=== PATIENT | female | born 1955 | race Caucasian/White ===

== ENCOUNTER 2021-08-18 11:26 | Outpatient (REF) | payer OTHER, SELFPAY ==
--- NOTE | ~2021-08-18 | XR_ITS ---
EXAMINATION: XR KNEE, LEFT CLINICAL INFORMATION: Pain after trauma yesterday COMPARISON: Left knee x-rays May 20, 2019 TECHNIQUE: Four views of the left knee. FINDINGS: No fracture or dislocation. No suprapatellar joint effusion. Mild narrowing of the medial joint space height. Tiny tricompartmental marginal osteophytes. XR/XR knee LT 4V IMPRESSION: Mild degenerative changes of the left knee.
== END 2021-08-18 11:27 | disposition home or self-care (01) ==
LOC: HO.HMGCX 11:26
PROVIDERS: PCP Hospitalist; Visit Provider Internal Medicine
DX: S83.92XA Sprain of unspecified site of left knee, initial encounter (principal); X58.XXXA Exposure to other specified factors, initial encounter; Y93.9 Activity, unspecified; Y92.9 Unspecified place or not applicable; Y99.9 Unspecified external cause status
CPT/HCPCS: 73564

== ENCOUNTER 2021-10-01 12:04 | Outpatient (REF) | payer OTHER, SELFPAY ==
[2021-10-01 13:07] LABS: COVID-19 Test Negative (Negative)
== END 2021-10-01 12:05 | disposition home or self-care (01) ==
LOC: HO.LAB 12:04
PROVIDERS: Visit Provider Internal Medicine
DX: Z20.822 Contact with and (suspected) exposure to COVID-19 (principal)
CPT/HCPCS: 36415; 87635; C9803

== ENCOUNTER 2024-08-28 18:30 | Emergency (ER) | payer MEDICARE, SELFPAY ==
--- NOTE | ~2024-08-28 | XR_ITS ---
EXAMINATION: XR HAND/WRIST, LEFT CLINICAL INFORMATION: Pain in fifth digit due to fall today COMPARISON: Left-sided wrist 07/29/2014 TECHNIQUE: PA, lateral, oblique, and scaphoid views of the left hand and wrist. FINDINGS: There is an acute spiral fracture through the mid metacarpal of the fifth digit. No other acute fractures are seen. There is a plate and screw device overlying the distal radius with old healed fracture. There is an old healed fracture of the distal ulna degenerative changes are seen at the interphalangeal joints and first CMC joint. XR/XR hand wrist LT IMPRESSION: Acute spiral fracture through the mid metacarpal of the fifth digit. Electronically signed by: Stephen Man MD 08/28/2024 07:58 PM EDT
[2024-08-28 18:32] VITALS: BP 142/62; PULSE 77; RESP 16; TEMP 37; O2SAT 97; BMI 25.4
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
[2024-08-28 18:57] VITALS: BP 137/74; PULSE 69; RESP 18; TEMP 37.2; O2SAT 97
[2024-08-28 20:08] VITALS: BP 135/72; PULSE 68; RESP 19; TEMP 37.2; O2SAT 98
== END 2024-08-28 20:13 | disposition home or self-care (01) ==
PROVIDERS: Emergency Provider Emergency Medicine; PCP Physician Assistant
DX: S62.397A Other fracture of fifth metacarpal bone, left hand, initial encounter for closed fracture (principal); W18.39XA Other fall on same level, initial encounter; M79.642 Pain in left hand; Y93.9 Activity, unspecified; Y92.828 Other wilderness area as the place of occurrence of the external cause; Y99.9 Unspecified external cause status
CPT/HCPCS: 29125; 73110; 73130; 99283; 99284

== ENCOUNTER 2024-08-31 14:07 | Outpatient (AMB) | payer MEDICARE, SELFPAY ==
[2024-08-31 14:22] VITALS: BMI 25.2
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
== END 2024-08-31 15:32 | disposition home or self-care (01) ==
LOC: HO.HOS 14:08
PROVIDERS: PCP Physician Assistant; Visit Provider Orthopaedic Surgery
DX: S62.307A Unspecified fracture of fifth metacarpal bone, left hand, initial encounter for closed fracture (principal); R20.0 Anesthesia of skin
CPT/HCPCS: 99204

== ENCOUNTER 2024-08-31 15:41 | Outpatient (REF) | payer MEDICARE, SELFPAY | END 2024-08-31 15:42 | disposition home or self-care (01) | LOC: HO.HOSX 15:41 | PROVIDERS: Visit Provider Orthopaedic Surgery | DX: M79.642 Pain in left hand (principal); R20.0 Anesthesia of skin; S62.307A Unspecified fracture of fifth metacarpal bone, left hand, initial encounter for closed fracture | CPT/HCPCS: 73130; 99202 ==

== ENCOUNTER 2024-09-02 09:31 | Day surgery (SDC) | payer MEDICARE, SELFPAY ==
--- NOTE | 2024-09-01 08:52 | HO.ANESPROP2 ---
Documented by User: Jasmyn Little NP 09/01/24 08:52 HPI - Anesthesia Eval Consult details Narrative: 69yo F for Left 5th Metacarpal ORIF vs CRPP PMFSH Active Problems Active Problems: All Active Problems Closed fracture of fifth metacarpal bone of left hand (Acute) Numbness of left hand (Acute) Knee sprain (Acute) Past Medical History Medical History (Updated 09/02/24 @ 12:01 by Lulú Chaves RN) Hypothyroid Age related osteoporosis Surgical History Surgical History (Updated 09/02/24 @ 11:43 by Lulú Chaves RN) H/O right knee surgery History of surgery History of surgery Social History Social History Patient Tobacco Use Status: Never used Tobacco Meds Allergies Allergy/AdvReac Type Severity Reaction Status Date / Time No Known Allergies Allergy Verified 08/31/24 14:28 Home Medications ?Medication ?Instructions ?Recorded ?Confirmed ?Last Taken ?Type ibandronate 150 mg tablet 150 mg PO 08/18/21 Unknown History levothyroxine 25 mcg tablet 25 mcg PO DAILY 09/02/24 09/02/24 Unknown History Assessment and Plan Assessment Anesthesia Assessment: Chart Reviewed Documented by User: Roxy Mathis MD 09/02/24 12:05 PMFSH Active Problems Active Problems: All Active Problems Closed fracture of fifth metacarpal bone of left hand (Acute) Numbness of left hand (Acute) Knee sprain (Acute) Hypothyroidism Osteoporosis Past Medical History Medical History (Updated 09/02/24 @ 12:01 by Lulú Chaves RN) Hypothyroid Age related osteoporosis Family History Family history of problems with anesthesia: No Surgical History Surgical History (Updated 09/02/24 @ 11:43 by Lulú Chaves RN) H/O right knee surgery History of surgery History of surgery History of Problems with Anesthesia: No Social History Social History Patient Tobacco Use Status: Never used Tobacco Meds Allergies Allergy/AdvReac Type Severity Reaction Status Date / Time No Known Allergies Allergy Verified 08/31/24 14:28 Home Medications ?Medication ?Instructions ?Recorded ?Confirmed ?Last Taken ?Type ibandronate 150 mg tablet 150 mg PO 08/18/21 Unknown History levothyroxine 25 mcg tablet 25 mcg PO DAILY 09/02/24 09/02/24 Unknown History Exam Height,Weight and Vital Signs: Height 5 ft 2 in Weight 64.524 kg Vital Signs Temp Pulse Resp BP Pulse Ox O2 Del Method 09/02/24 12:00 98.2 F 60 16 148/81 H 98 Room Air Airway Mallampati Class: I TM Dist: >3cm Neck ROM: Full Loose/Missing/Broken Teeth: No Heart: RRR Lungs: CTAB Assessment and Plan Final Anesthetic Review Family History of Problems with Anesthesia: No History of Problems with Anesthesia: No NPO: Yes ASA Class: II Final Preanesthetic Review: No Changes in Pt Med Stat, Meds/Allgs Chart Reviewed, Consent Obtained/Reviewed and Anes Risks/Benef Reviewed Patient Risk: Low Procedure Risk: Low Assessment/Block/Sedation in SS: Assess/Block/Sedation-SS Anesthetic Plan Anesthetic Plan: GA Disposition: Standard PACU
[2024-09-02 11:43] VITALS: BMI 26.0
[2024-09-02 12:00] VITALS: BP 148/81; PULSE 60; RESP 16; TEMP 36.8; O2SAT 98
[2024-09-02] MEDS: Lactated Ringers 1,000 ML 100 ML IVCONT (12:14)
--- NOTE | 2024-09-02 12:24 | P.OP_ITS ---
Operative Note Operative Note Date of Service: 09/02/24 Narrative: Operative Note Narrative: Preop diagnosis: 1. Left 5th Metacarpal shaft fracture Postop diagnosis: Same Procedure: 1. Left 5th Metacarpal shaft fracture closed reduction percutaneous pinning 2. Ulnar nerve block Surgeon: Tonia Felipe MD Steward/Stewardess Chief Cargo Vessel: Madhav LOPEZ Anesthesia: General Anesthesia Findings: Metacarpal fracture Implants: 0.054 K-wire x1 0.045 K-wire x2 Tourniquet time: None EBL: Minimal Specimen: None Drains: None Complications: None Disposition: Brought to the recovery room in stable condition Plan: Follow-up in 10-14 days for a wound check, postop radiographs and for placement in a short-arm cast or splint Anticipate K-wire removal in 4 weeks based on interval bony healing Educate the patient that full fracture healing anticipated in approximately 8-12 weeks. Indications: The patient is 69 years old with a displaced left 5th metacarpal shaft fracture . The risks and benefits of operative treatment, including but not limited to risk of damage to blood vessels, nerves, tendons, infection, recurrence, delayed or nonunion of fracture, persistent pain or numbness, incomplete resolution of preoperative symptoms, or need for further surgery were discussed with the patient and they wished to proceed with surgery. Procedure: Once consent was obtained patient was brought back to the operating suite and placed in the operating table in a supine position. . Perioperative antibiotics and general anesthesia was administered by the anesthesia team. A tourniquet was applied to the proximal aspect of the left upper extremity and the limb was prepped and draped in a standard surgical fashion. Tourniquet was not inflated during the case. The FluoroScan was used during the case to assist with our fracture reduction and placement of all implants. A closed reduction was performed on the patient's left 5th metacarpal shaft fracture. I placed a single 0.054 K-wire retrograde through the head of the left 5th metacarpal extending proximally across the fracture site to the base of the metacarpal. 2x 0.045 K-wires were placed transversely through the neck of the 5th metacarpal extending into the head and neck of the 4th metacarpal. Fracture alignment was assessed for both angular and rotational malalignment. Once satisfied with our fracture reduction and implant placement, the K-wires were bent and cut short and pin caps applied. Final fluoroscopic images were then obtained. The wounds were copiously irrigated with normal saline. An ulnar nerve block was then performed by infiltrating about the ulnar nerve at the wrist with some 1% lidocaine with epinephrine for postop pain control. A Sterile dressing and short volar splint was applied. The patient appears to have tolerated the procedure well and with no complications. All digits were well vascularized at the conclusion of the case.
--- NOTE | 2024-09-02 12:24 | MHC.SHP ---
Pre-Procedural Eval Section A - 24 Hr Update-Section A only Date of Service: 09/02/24 The patient is an INPATIENT: No Changes since office visit: No Cold of Flu in the past 2 weeks, No New Medical Problems, No Changes in Medication and No Patient answered all questions The patient has been examined within 24 hours of the surgical procedure. The History & Physical has been completed within 30 days and I have reviewed it.: Yes Section B - Complete if H&P > 30 days Chief Complaint: Unspecified fracture of fifth metacarpal bone, Allergies: Allergies Allergy/AdvReac Type Severity Reaction Status Date / Time No Known Allergies Allergy Verified 08/31/24 14:28 Plan I have reviewed the history and physical and performed a pertinent physical examination on my patient. No changes have occurred unless specified. Time Spent With Patient Time: Total time managing care of this patient today ____ minutes.
[2024-09-02 14:47] VITALS: BP 124/61; PULSE 78; RESP 14; TEMP 36.6; O2SAT 99
[2024-09-02 14:52] VITALS: BP 136/66; PULSE 73; RESP 15; O2SAT 97
[2024-09-02 14:57] VITALS: BP 127/70; PULSE 68; RESP 15; O2SAT 97
[2024-09-02 15:02] VITALS: BP 140/69; PULSE 64; RESP 15; O2SAT 96
[2024-09-02 15:17] VITALS: BP 146/74; PULSE 65; RESP 6; TEMP 37.2; O2SAT 98
== END 2024-09-02 15:36 | disposition home or self-care (01) ==
PROVIDERS: PCP Physician Assistant; Visit Provider Orthopaedic Surgery
PROC: (CPT 26615; principal; 2024-09-02 12:50)
DX: S62.307A Unspecified fracture of fifth metacarpal bone, left hand, initial encounter for closed fracture (principal); W01.0XXA Fall on same level from slipping, tripping and stumbling without subsequent striking against object, initial encounter; Y93.01 Activity, walking, marching and hiking; Y92.821 Forest as the place of occurrence of the external cause; Y99.9 Unspecified external cause status; M81.0 Age-related osteoporosis without current pathological fracture; E03.9 Hypothyroidism, unspecified; Z79.899 Other long term (current) drug therapy; Z98.890 Other specified postprocedural states
CPT/HCPCS: 26608; J0131; J0690; J2003; J2405; J2704; J2795; J3010

== ENCOUNTER → 2024-09-02 09:31 | Outpatient (BNV) | payer MEDICARE, SELFPAY | PROVIDERS: PCP Physician Assistant; Visit Provider Orthopaedic Surgery | DX: S62.326A Displaced fracture of shaft of fifth metacarpal bone, right hand, initial encounter for closed fracture (principal) | CPT/HCPCS: 26727 ==

== ENCOUNTER 2024-09-14 11:36 | Outpatient (AMB) | payer MEDICARE, SELFPAY ==
--- NOTE | 2024-09-14 11:48 | A.OFFVIS_ITS ---
Intake Visit Reasons: PO LT 5th MC CRPP 09/02/24 AR Intake Note: Mansi is a 69 year old left hand dominant female who presents today post operative s/p Left 5th Metacarpal shaft fracture CRPP w/ Dr Felipe DOS: 09/02/2024. Patient reports that she is doing well, with very mild pain. She has been taking Tylenol for her pain which is working well. Splint removed today, Xrays updated in office today. Dressing stuck to pinsite. Allergies No Known Allergies Allergy (Verified 08/31/24 14:28) HPI HPI PO LT 5th MC CRPP 09/02/24 AR: Details: Patient is a 69-year-old female who presents for postoperative evaluation status post left 5th metacarpal CRPP, DOS 09/02/2024. Today, the patient reports that she is feeling well, and does not experience any pain at the surgery site at [facility], however she does experience some discomfort in the left small finger with attempted range of motion in the office today. Patient denies any concerns with the splint, and states that she did keep it clean, dry, and intact since surgery. No other acute complaints or concerns at this time. [facility] Medical History (Updated 09/02/24 @ 12:01 by Lulú Chaves RN) Hypothyroid Age related osteoporosis Surgical History (Updated 09/02/24 @ 11:43 by Lulú Chaves RN) H/O right knee surgery History of surgery History of surgery Social History Patient Tobacco Use Status: Never used Tobacco Review of Systems Const All systems reviewed & are unremarkable except as noted in HPI and below Physical Exam Extrem Other: Patient is alert, oriented, and in no acute distress. Neuro: Normal sensation of the tips of all digits of the left hand at this time Vascular: Cap refill brisk Pain: Patient reports no tenderness to palpation about the pin sites of the left hand ROM: Patient was unable to flex and extend the ring and small fingers of the left hand fully at this time. Patient is able to flex and extend all other digits of the left hand without difficulty Skin: No evidence of infection of the pin sites General: No ecchymosis, erythema, or evidence of infection. Psych: Appears grossly normal Affect normal Attitude cooperative Office Procedures Casting/Splints 05409-Sciz/Wrist Cast Application Procedure code (CPT) selection complete Results Reviewed Results Reviewed: X-rays obtained in the office today and independently reviewed by me, Madhav Chaudhry PA-C, demonstrate well approximated fracture of the 5th metacarpal shaft with pins in place and in satisfactory clinical alignment. Assessment & Plan Assessment & Plan (1) Closed fracture of fifth metacarpal bone of left hand: Code(s): S62.307A - Unspecified fracture of fifth metacarpal bone, left hand, initial encounter for closed fracture Category: Medical Plan 1. Left 5th metacarpal fracture status post CRPP DOS 09/02/2024 Patient appears to be recovering well postoperatively Patient is educated about the typical recovery course At this time, patient was placed into a ulnar gutter cast with the ring and small fingers in the cast and in flexion Patient is educated on proper cast care and precautions Patient will follow-up in 2 weeks with cast off and repeat x-rays, sooner with any acute concerns Orders: Orders XR hand LT min 3V Today M79.642 - Pain in left hand Coding Level of Care Code Global (57819) Diagnoses Closed fracture of fifth metacarpal bone of left hand S62.307A CPT Codes Casting - CPT: 09965-Xnoe/Wrist Cast Application ([id number])
== END 2024-09-14 12:52 | disposition home or self-care (01) ==
PROVIDERS: PCP Physician Assistant
DX: S62.307D Unspecified fracture of fifth metacarpal bone, left hand, subsequent encounter for fracture with routine healing (principal); W01.0XXA Fall on same level from slipping, tripping and stumbling without subsequent striking against object, initial encounter
CPT/HCPCS: 29085; 99024

== ENCOUNTER 2024-09-14 11:36 | Outpatient (REF) | payer MEDICARE, SELFPAY ==
--- NOTE | ~2024-09-14 | XR_ITS ---
EXAMINATION: XR HAND LEFT CLINICAL INFORMATION: Pain in left hand M79.642. COMPARISON: XR Left hand 08/31/2024 TECHNIQUE: PA, lateral, and oblique views of the left hand. FINDINGS: Postoperative changes with [address] overlying the 4th and 5th carpals. Fracture of the 5th metacarpal redemonstrated with improved alignment compared with the preoperative examination. There some minimal persistent medial displacement of the distal fragment. Incidental note made of postsurgical changes in the partially visualized of distal radius unchanged. XR/XR hand LT min 3V IMPRESSION: 1. Postoperative changes. 2. Improved alignment of the 5th metacarpal fracture compared with the preoperative examination. Electronically signed by: Yifan Germain MD 11/15/2024 09:04 AM KRISTIE BRAY
== END 2024-09-14 11:37 | disposition home or self-care (01) ==
LOC: HO.HOSX 11:36
PROVIDERS: PCP Physician Assistant
DX: S62.307A Unspecified fracture of fifth metacarpal bone, left hand, initial encounter for closed fracture (principal); M79.642 Pain in left hand
CPT/HCPCS: 29085; 73130; 99212

== ENCOUNTER 2024-10-04 12:43 | Outpatient (REF) | payer MEDICARE, SELFPAY | END 2024-10-04 12:44 | disposition home or self-care (01) | LOC: HO.HOSX 12:43 | DX: M79.642 Pain in left hand (principal); S62.307A Unspecified fracture of fifth metacarpal bone, left hand, initial encounter for closed fracture | CPT/HCPCS: 73130; 99212 ==

== ENCOUNTER 2024-10-04 13:20 | Outpatient (AMB) | payer MEDICARE, SELFPAY ==
--- NOTE | 2024-10-04 13:46 | A.OFFVIS_ITS ---
Vital Signs 10/04/24 13:48 Height 5 ft 2 in Weight 140 lb BMI 25.6 Handedness Left Intake Visit Reasons: PO LT 5th MC CRPP 09/02/24 AR Intake Note: Mansi is a 69 year old left hand dominant female who presents today post operative s/p Left 5th Metacarpal shaft fracture CRPP w/ Dr Felipe DOS: 09/02/2024. Ulnar gutter cast removed and xrays updated. Allergies No Known Allergies Allergy (Verified 10/04/24 13:48) HPI HPI PO LT 5th MC CRPP 09/02/24 AR: Details: Patient is a 69-year-old female who presents for postoperative evaluation status post left 5th metacarpal CRPP, DOS 09/02/2020. Today, the patient reports that she is feeling well, and experiences no pain at baseline. The patient expresses that she is hopeful she will be able to have her pins removed today. Patient reports no numbness or tingling in the left hand. No other acute complaints or concerns at this time. [facility] Medical History (Updated 09/02/24 @ 12:01 by uLlú Chaves RN) Hypothyroid Age related osteoporosis Surgical History (Updated 09/02/24 @ 11:43 by Lulú Chaves RN) H/O right knee surgery History of surgery History of surgery Social History Patient Tobacco Use Status: Never used Tobacco Review of Systems Const All systems reviewed & are unremarkable except as noted in HPI and below Physical Exam Vital Signs: BMI result Body Mass Index 25.6 Extrem Other: Patient is alert, oriented, and in no acute distress. Neuro: Normal sensation of the tips of all digits of the left hand at this time Vascular: Cap refill brisk Pain: Patient reports no tenderness to palpation about the pin sites of the left hand ROM: Patient was unable to flex and extend the ring and small fingers of the left hand fully at this time. Patient is able to flex and extend all other digits of the left hand without difficulty Skin: No evidence of infection of the pin sites General: No ecchymosis, erythema, or evidence of infection. Psych: Appears grossly normal Affect normal Attitude cooperative Results Reviewed Results Reviewed: X-rays obtained in the office today and independently reviewed by me, Madhav Chaudhry PA-C, demonstrate well approximated fracture of the 5th metacarpal shaft with pins in place and in satisfactory clinical alignment. Assessment & Plan Assessment & Plan (1) Closed fracture of fifth metacarpal bone of left hand: Code(s): S62.307A - Unspecified fracture of fifth metacarpal bone, left hand, initial encounter for closed fracture Category: Medical Plan 1. Left 5th metacarpal fracture status post CRPP DOS 09/02/2024 Patient appears to be recovering well postoperatively Patient is educated about the typical recovery course At this time, patient was educated that we should leave the pins in for little longer due to there not being much evidence of bony healing around the pins today Patient was advised that we will only the pins in for approximately 1 more week At this time, patient was placed into a ulnar gutter cast with the ring and s mall fingers in the cast and in flexion Patient is educated on proper cast care and precautions Patient will follow-up in 1-2 weeks with cast off and repeat x-rays, sooner with any acute concerns Orders: Orders XR hand LT min 3V Today M79.642 - Pain in left hand Coding Level of Care Code Global (54742) Diagnoses Closed fracture of fifth metacarpal bone of left hand S62.307A
[2024-10-04 13:48] VITALS: BMI 25.6
== END 2024-10-04 14:46 | disposition home or self-care (01) ==
PROVIDERS: PCP Physician Assistant
DX: S62.307A Unspecified fracture of fifth metacarpal bone, left hand, initial encounter for closed fracture (principal)
CPT/HCPCS: 99024

== ENCOUNTER 2024-10-12 14:18 | Outpatient (AMB) | payer MEDICARE, SELFPAY ==
--- NOTE | 2024-10-12 14:46 | MHC.OFFVIS ---
Intake Visit Reasons: PO LT 5th MC CRPP 09/02/24 AR Intake Note: Mansi is a 69 year old left hand dominant female who presents to the office today for a PO LT 5th MC CRPP 09/02/24 AR. Pt states she is overall feeling well and denies any pain, numbness, or tingling. Allergies No Known Allergies Allergy (Verified 10/12/24 14:47) HPI HPI PO LT 5th MC CRPP 09/02/24 AR: Details: Patient is a 69 old female who presents for postoperative evaluation status post left 5th metacarpal CRPP, DOS 09/02/2024 today, the patient reports that she is feeling well, and is experiencing no discomfort in left hand at baseline. The patient does feel that her range of motion has been significantly reduced since surgery due to being in a cast for 5 weeks. Patient states no concerns for increasing pain or other signs or symptoms of infection of the pin site. Denies any numbness or tingling in the left hand. No other acute complaints or concerns at this time. [facility] Medical History (Updated 09/02/24 @ 12:01 by Lulú Chaves RN) Hypothyroid Age related osteoporosis Surgical History (Updated 09/02/24 @ 11:43 by Lulú Chaves RN) H/O right knee surgery History of surgery History of surgery Social History Patient Tobacco Use Status: Never used Tobacco Review of Systems Const All systems reviewed & are unremarkable except as noted in HPI and below Physical Exam Extrem Other: Patient is alert, oriented, and in no acute distress. Neuro: Normal sensation of the tips of all digits of the left hand at this time Vascular: Cap refill brisk Pain: Patient reports no tenderness to palpation about the pin sites of the left hand ROM: Patient was unable to flex and extend the ring and small fingers of the left hand fully at this time. Patient is able to flex and extend all other digits of the left hand without difficulty Skin: No evidence of infection of the pin sites General: No ecchymosis, erythema, or evidence of infection. Psych: Appears grossly normal Affect normal Attitude cooperative Results Reviewed Results Reviewed: X-rays obtained in the office today and independently reviewed by me, Madhav Chaudhry PA-C, demonstrate well approximated fracture of the 5th metacarpal shaft with pins in place and in satisfactory clinical alignment. There is evidence of interval bony healing of this fracture. X-rays obtained after pins are pulled in the office today demonstrate fracture that continues to be well aligned. Assessment & Plan Assessment & Plan (1) Closed fracture of fifth metacarpal bone of left hand: Code(s): S62.307A - Unspecified fracture of fifth metacarpal bone, left hand, initial encounter for closed fracture Category: Medical Plan 1. Left 5th metacarpal fracture status post CRPP DOS 09/02/2024 Patient appears to be recovering well postoperatively Patient is educated about the typical recovery course Pins pulled in the office today without incident Patient was advised that she no longer needs to be in a cast or splint, but should carmina tape her ring and small fingers together to act as a moving splint Patient is also provided with a Velcro wrist splint to wear with daytime activities Additionally, patient was referred to occupational therapy for gentle range of motion of the left hand in the setting of this fracture Patient will follow-up in 3-4 weeks with repeat x-rays, sooner with any acute concerns Orders: Orders XR hand LT min 3V Today M79.642 - Pain in left hand XR hand LT min 3V Today M79.642 - Pain in left hand Coding Level of Care Code Global (57032) Diagnoses Closed fracture of fifth metacarpal bone of left hand S62.307A
== END 2024-10-12 15:48 | disposition home or self-care (01) ==
PROVIDERS: PCP Physician Assistant
DX: S62.307A Unspecified fracture of fifth metacarpal bone, left hand, initial encounter for closed fracture (principal)
CPT/HCPCS: 99024

== ENCOUNTER 2024-11-02 08:26 | Outpatient (REF) | payer MEDICARE, SELFPAY | END 2024-11-02 08:27 | disposition home or self-care (01) | LOC: HO.HOSX 08:26 | DX: Z13.89 Encounter for screening for other disorder (principal) ==

== ENCOUNTER 2024-11-05 09:56 | Outpatient (RCR) | payer MEDICARE, SELFPAY ==
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
== END 2024-11-10 08:06 | disposition home or self-care (01) ==
LOC: HO.OT 09:56
PROVIDERS: PCP Physician Assistant
DX: S62.307A Unspecified fracture of fifth metacarpal bone, left hand, initial encounter for closed fracture (principal)
CPT/HCPCS: 97110; 97140; 97166; 97535